=== PATIENT | male | born 1980 | race Caucasian/White ===

== ENCOUNTER 2022-05-01 09:12 | Outpatient (CLI) | payer OTHER ==
[~2022-05-01] VITALS: Ht 182.9 cm; Wt 90.7 kg
[~2022-05-01 09:12] MED LIST: CYCL-394 PO; HYDR1TAB PO; NAPR-232 PO
[2022-05-01] MEDS ORDERED: albuterol 2.5 MG/3 ML nebule NEB ONE (09:30)
== END 2022-05-01 23:59 | disposition home or self-care (01) ==
LOC: RT 09:12
PROVIDERS: ATTEND Chiropractor
DX: J98.4 Other disorders of lung (principal); J06.9 Acute upper respiratory infection, unspecified
CPT/HCPCS: 71046; 94060; 94760